=== PATIENT | female | born 1980 | race Caucasian/White ===

== ENCOUNTER 2021-12-31 22:44 | Emergency (ER) | payer BC, OTHER ==
[~2021-12-31] VITALS: Ht 154.9 cm; Wt 61.2 kg
[2021-12-31 22:48] VITALS: BP 107/65
--- NOTE | 2021-12-31 22:48 | NUR ---
[facility] NG TAKEN TO BED #8
--- NOTE | 2021-12-31 23:00 | NUR ---
41/F BIBA C/C ETOHBIBA FROM HOME S/P INGESTION OF 6 BEERS EARLIER TODAY. ALSO C/O N/V X4 TIMES EARLIER TODAY. CHRISTELLE IS AAOX4 STATED "I DIDNT THINK DRINKING ALCOHOL WOULD DO THAT TO ME. THIS IS THE FIRST TIME I DRINK." CHRISTELLE DENIES PAIN/SOB/CP AT THIS TIME. RR APPEAR TO BE EVEN AND UNLABORED. NO SIGNS OF DISTRESS. PATIENT PLACED ON MONITOR AND IN BED. BED LOW AND LOCKED. [employer] SIDE RAILS UP FOR SAFETY. ALL NEEDS MET. DENIES PMHX, RX NKA
--- NOTE | 2021-12-31 23:06 | NUR ---
DR BANG AT BEDSIDE EXAMINING PT
[2021-12-31] MEDS ORDERED: NACL 0.9% 1,000 ML IV ONE (23:10)
[2021-12-31] MEDS ORDERED: ONDANSETRON 4 MG/2 ML VIAL IVP ONE (23:10)
[2021-12-31] MEDS ORDERED: ONDA-188 SL (23:11)
--- NOTE | 2021-12-31 23:13 | NUR ---
CHRISTELLE REFUSES TO BE TESTED FOR . SHE STATED " IM NOT , THERES NO WAY. IM ON CONTROL AND I HAVENT BEEN WITH ANYONE IN 3YEARS. I'VE ALREADY TOLD THE DOCTOR." AWARE. CHRISTELLE AWARE OF RISKS OF NOT TESTING FOR , EUGENE REFUSES.
[2021-12-31 23:36] VITALS: BP 97/73
--- NOTE | 2022-01-01 00:58 | NUR ---
Patient presented to facility under the influence of Alcohol. Patient is currently ambulatory with steady gait, able to walk unassisted. Positive gag reflex. Alert and oriented. Is not driving self for discharge out of facility. patient discharged in to the care of family. Rx of zofran given.
--- NOTE | 2022-01-01 01:00 | NUR ---
The patient's care was reviewed and supervised by Manjula Rm RN.
== END 2022-01-01 00:58 | disposition home or self-care (01) ==
LOC: MED 22:44
DX: F10.129 Alcohol abuse with intoxication, unspecified (principal); R11.2 Nausea with vomiting, unspecified; Z79.899 Other long term (current) drug therapy
CPT/HCPCS: 96361; 96374; 99283; J2405; J7030